=== PATIENT | female | born 1955 | race Two or more races ===

== ENCOUNTER 2016-08-10 09:13 | Emergency (ER) | payer OTHER ==
[2016-08-10 09:21] VITALS: RESP 16
--- NOTE | 2016-08-10 09:24 | EDPHY ---
H & P Stated Complaint: Left sided rib pain from fall yesterday. Time Seen by Provider: 08/10/16 09:23 - Personal History Current Tetanus/Diphtheria Vaccine: Unsure Current Tetanus Diphtheria and Acellular Pertussis (TDAP): Unsure - Medical/Surgical History Other PMH: Denies - Social History Smoking Status: Never smoked Constitutional: Initial Vital Signs Temperature (C) 36.4 C 08/10/16 09:18 Heart Rate 68 08/10/16 09:18 Respiratory Rate 16 08/10/16 09:18 Blood Pressure 137/69 H 08/10/16 09:18 O2 Sat (%) 97 08/10/16 09:18 O2 Delivery Mode Room Air Allergies/Adverse Reactions: ibuprofen Allergy (Verified 08/10/16 09:18) Home Medications: Medication Instructions Recorded oxyCODONE IR [Oxycodone Ir (*)] 5 - 10 mg PO Q6 PRN #20 tab 08/10/16 Medical Decision Making - Diagnostics Imaging Results: Imaging Impressions Chest CT 08/10/16 09:40 Impression: Single lateral left ninth rib fracture. Otherwise negative. Results called to Dr. Valles at 10:48 AM. Final results are concordant with the initial interpretation. General information for patients regarding this examination can be found at [email or web address]. If you have questions or comments about this report, please contact me at [phone] (hospital) or [phone] (cell). Imaging: Discussed imaging studies w/ call center assistant Radiologist, I viewed and interpreted images myself ED Course/Re-evaluation: CHIEF COMPLAINT: Rib pain HISTORY OF PRESENT ILLNESS: The patient is a Kinyarwanda-speaking 60 y/o female, with a history of diabetes, arriving with her family members complaining of left lateral rib pain secondary to a fall yesterday. She says she was cleaning a bathroom at work when she slipped and fell onto the edge of the tub striking the left side of her chest. She did not lose consciousness and denies other injuries. She has associated difficulty breathing due to pain. No midline neck or back pain, weakness, paresthesias, vomiting. She denies other medical history. Her son at bedside translated for us. REVIEW OF SYSTEMS: A 10 point review of systems was performed and is negative with the exception of the elements mentioned in the history of present illness. PHYSICAL EXAM: HR, BP, O2 Sat, RR. Temp noted General Appearance: Alert, well hydrated, appropriate, uncomfortable and non- toxic appearing. Head: Atraumatic without scalp tenderness or obvious injury Eyes: Pupils equal, round, reactive to light and accommodation, EOMI, no trauma , no injection. Nose: Atraumatic, no rhinorrhea, clear. Throat: Mucus membranes moist. Neck: Supple, nontender, no lymphadenopathy. Respiratory: No retractions, no distress, no wheezes, and no accessory muscle use. Lungs are clear to auscultation bilaterally. Cardiovascular: Regular rate and rhythm, no murmurs, rubs, or gallops. Good capillary refill all extremities. Gastrointestinal: Abdomen is soft, nontender, non-distended, no masses, no rebound, no guarding, no peritoneal signs. Musculoskeletal: Normal active ROM of all extremities, atraumatic. Left rib tenderness underneath left breast. Neurological: Alert, appropriate, and interactive. Nonfocal neuro exam. Skin: No rashes, good turgor, no nodules on palpation. Past medical history: Diabetes Past surgical history: Denies Family history: Noncontributory Social history: Kinyarwanda-speaking. Family at bedside. Employed. DIAGNOSTICS/PROCEDURES/CRITICAL CARE TIME: CT Chest: Left lateral 9th rib fracture DIFFERENTIAL DIAGNOSIS: The differential diagnosis for the patient's trauma included but was not limited to intracranial injury, long bone and pelvic bone fractures, spinal injury, intra-abdominal injury, and intra-thoracic injury. MEDICAL DECISION MAKING: This is a 60 y/o female with a history of diabetes presenting with lateral left rib tenderness secondary to a fall yesterday. No other trauma or tenderness noted on exam. Flank, spine, and abdomen are nontender. Plan for ISTAT and chest CT to rule out fracture and intra-thoracic injury. 1mg IV Dilaudid, 4mg IV Zofran, 1L IV NS administered for pain. CT is positive for rib fracture. I discussed findings with the patient. She will be discharged home with standard rib fracture instructions and referral to PCP for follow up as needed. - Data Points Laboratory Results: 08/10/16 09:44 POC Hgb 13.3 gm/dL gm/dL (12.6-16.3) POC Hct 39 % % (38-47) POC Sodium 144 mEq/L mEq/L (134-144) POC Potassium 4.2 mEq/L mEq/L (3.3-5.0) POC Chloride 107 mEq/L mEq/L (97-110) POC BUN 12 mg/dL mg/dL (7-23) POC Creatinine 0.7 mg/dL mg/dL (0.6-1.0) POC Glucose 118 mg/dL H mg/dL (70-100) Medications Given: Discontinued Medications Hydromorphone HCl (Dilaudid) 1 mg IVP EDNOW ONE Stop: 08/10/16 09:40 Last Admin: 08/10/16 10:02 Dose: 1 mg Ondansetron HCl (Zofran) 4 mg IVP EDNOW ONE Stop: 08/10/16 09:40 Last Admin: 08/10/16 10:02 Dose: 4 mg Point of Care Test Results: 08/10/16 09:44 POC Sodium 144 POC Potassium 4.2 POC Chloride 107 POC BUN 12 POC Creatinine 0.7 POC Glucose 118 H Departure - Departure Disposition: Home, Routine, Self-Care Clinical Impression: Left rib fracture Qualifiers: Encounter type: initial encounter Rib fracture type: single rib Fracture type: closed Qualified Code(s): S22.32XA - Fracture of one rib, left side, initial encounter for closed fracture Condition: Good Instructions: Rib Fracture (ED), How to Use an Incentive Spirometer (ED) Additional Instructions: 1. Take OxyIR as prescribed when needed for pain. Apply ice to sore areas. 2. Use incentive spirometer as directed. 3. Follow up with your primary care provider for unimproved symptoms over the next 2 weeks. Rib fractures take several weeks to heal. 4. Return to the ED for any worsening of condition. Referrals: [facility],. [Clinic] - As per Instructions Prescriptions: oxyCODONE IR [Oxycodone Ir (*)] 5 - 10 mg PO Q6 PRN #20 tab PRN Reason: Pain, Severe Report Scribed for: Buddy Valles Report Scribed by: Amanda Lopez Date of Report: 08/10/16 Time of Report: 09:43
[2016-08-10] MEDS ORDERED: HYDROmorphONE/DILAUDID 1 MG/ML SYR IVP ONE (09:39)
[2016-08-10] MEDS ORDERED: ONDANSETRON 4 MG/2 ML VIAL IVP ONE (09:39)
[2016-08-10] MEDS ORDERED: IOPAMIDOL (ISOVUE-300) 100 ML BTL ONE (10:02)
[2016-08-10 11:09] VITALS: BP 121/73; PULSE 74; TEMP 98.1; O2SAT 94
== END 2016-08-10 11:30 | disposition home or self-care (01) ==
DX: S22.32XA Fracture of one rib, left side, initial encounter for closed fracture (principal); E11.9 Type 2 diabetes mellitus without complications; W01.198A Fall on same level from slipping, tripping and stumbling with subsequent striking against other object, initial encounter; Y92.002 Bathroom of unspecified non-institutional (private) residence as the place of occurrence of the external cause; Y99.0 Civilian activity done for income or pay; Y93.89 Activity, other specified
CPT/HCPCS: 82947-QW; 96374; J1170; J2405; Q9967

== ENCOUNTER 2017-05-31 19:33 | Emergency (ER) | payer OTHER ==
[2017-05-31] MEDS ORDERED: HYDROmorphONE/DILAUDID 2 MG/ML INJ IVP ONE (20:21)
[2017-05-31] MEDS ORDERED: NS 1,000 ML IV ONE (20:21)
[2017-05-31] MEDS ORDERED: ONDANSETRON 4 MG/2 ML VIAL IVP ONE ×2 (20:21→21:54)
--- NOTE | 2017-05-31 20:26 | EDPHY ---
H & P Time Seen by Provider: 05/31/17 20:00 HPI/ROS: HPI Abdominal pain. 66-year-old female by private vehicle with family. This patient complains of abdominal pain which she describes as lower, sharp and cramping mostly on the left side with radiation to the left back but some as well on the right side. She states that it developed at about 10:00 p.m.. She has had this pain to a lesser degree intermittently in the past but it has gone away on its own. She denies any prior abdominal surgical history. Her last meal was lunch earlier today. This was about 2:00 p.m.. No diarrhea. No bloody or melenic stool. Last bowel movement was yesterday. This was described as normal. She has had some mild nausea but no vomiting. She denies any upper abdominal tenderness on palpation. ROS: Constitutional: No fever, no chills. No weakness. Eyes: No discharge. No changes in vision. ENT: No sore throat. No nasal congestion or rhinorrhea. Respiratory: No cough. No shortness of breath. Cardiac: No chest pain, no palpitations. Gastrointestinal: As above, no vomiting, no diarrhea. Genitourinary: No hematuria. No dysuria or increased frequency with urination. Musculoskeletal: No back pain. No neck pain. No myalgias or arthralgias. Skin: No rashes. Neurological: No headache. No focal weakness or altered sensation. Past medical history: Type 2 diabetes. Primary care is through [facility]. Dr. Gamal Snyder. Social history: Nonsmoker. Here with her family. Physical Exam: General Appearance: Alert, moderately obese, no distress but she looks uncomfortable. This patient is responding to questions appropriately and in full sentences. This patient appears well-hydrated and well-nourished. Eyes: Pupils equal and round no pallor or injection. No lid edema, erythema or injection. Respiratory: There are no retractions, lungs are clear to auscultation with good air movement bilaterally. Cardiovascular: Regular rate and rhythm. No murmur. Gastrointestinal: Abdomen is soft with vague and moderate tenderness on palpation of the left lower quadrant, no masses, bowel sounds normal. No focal tenderness at McBurney's point. No Jovel sign. Neurological: Motor sensory function is grossly intact. Cranial nerves are normal. Gait is normal. Skin: Warm and dry, no rashes. Musculoskeletal: Neck is supple and nontender. No midline thoracic, lumbar, sacral tenderness on palpation. No CVA tenderness on palpation. Extremities are symmetrical. All joints range without pain or impingement. Psychiatric: No agitation. No depression. Database: EKG: Imaging: CT abdomen and pelvis with IV contrast: No evidence of kidney stone. Some right-sided constipation. Normal appendix. Fatty liver. No diverticulosis or diverticulitis. Otherwise normal study. Results were discussed with staff radiologist Dr. Ronaldo Smith. Procedures: Emergency department course: IV was placed. She was placed on a monitor. Vital signs reviewed. She is moderately hypertensive. Vital signs otherwise normal. She was started on IV normal saline with 500 cc to 1 L to be given over the next hour. She will be given 0.25 mg of IV hydromorphone initially for pain. This will be repeated as needed. She will be given 4 mg of IV Zofran for some mild nausea. She consents to CT imaging to evaluate for possible diverticulitis. 10:10 p.m., patient re-evaluated. Results of emergency department workup discussed with the patient and family through a fitness plan coordinator. Repeat abdominal exam she is soft, nontender nondistended. She will be given magnesium citrate to treat constipation. She will go home with this. She feels comfortable going home and I feel she is safe for discharge. Follow-up and return to emergency department precautions were discussed with her. All of her questions were answered. She was discharged in good condition with family. All interviews performed with [facility] employed fitness plan coordinator. Differential Diagnosis: The differential diagnosis on this patient includes but is not limited to diverticulitis, urinary tract infection, ureterolithiasis. Appendicitis, cholecystitis, volvulus unlikely. This represents a partial list of diagnoses considered. These considerations are based on history, physical exam, past history, reassessment and diagnostic testing. Smoking Status: Never smoked Constitutional: Initial Vital Signs Temperature (C) 36.5 C 05/31/17 19:37 Heart Rate 65 05/31/17 19:37 Respiratory Rate 20 05/31/17 19:37 Blood Pressure 153/68 H 05/31/17 19:37 O2 Sat (%) 96 05/31/17 19:37 O2 Delivery Mode Room Air Allergies/Adverse Reactions: No Known Allergies Allergy (Unverified 05/31/17 19:37) Home Medications: Medication Instructions Recorded Diabetes Medicine 05/31/17 Medical Decision Making - Diagnostics Imaging Results: Imaging Impressions Abdomen CT 05/31/17 20:22 Impression: 1. Mild hepatomegaly with diffuse hepatic steatosis. 2. Normal CT appearance of the appendix. 3. Small central sliding hiatal hernia. 4. Moderate right-sided constipation. Findings were discussed with Johnathon Jiang MD at 22:01, on 05/31/2017. - Data Points Laboratory Results: Laboratory Results 05/31/17 20:20 05/31/17 20:20 05/31/17 05/31/17 05/31/17 20:20 20:20 20:15 WBC 6.57 10^3/uL 10^3/uL (3.80-9.50) RBC 4.24 10^6/uL 10^6/uL (4.18-5.33) Hgb 12.8 g/dL g/dL (12.6-16.3) Hct 37.2 % L % (38.0-47.0) MCV 87.7 fL fL (81.5-99.8) MCH 30.2 pg pg (27.9-34.1) MCHC 34.4 g/dL g/dL (32.4-36.7) RDW 12.6 % % (11.5-15.2) Plt Count 227 10^3/uL 10^3/uL (150-400) MPV 12.3 fL H fL (8.7-11.7) Neut % (Auto) 53.6 % % (39.3-74.2) Lymph % (Auto) 35.3 % % (15.0-45.0) Cochran % (Auto) 7.5 % % (4.5-13.0) Eos % (Auto) 2.9 % % (0.6-7.6) Baso % (Auto) 0.5 % % (0.3-1.7) Nucleat RBC Rel Count 0.0 % % (0.0-0.2) Absolute Neuts (auto) 3.53 10^3/uL 10^3/uL (1.70-6.50) Absolute Lymphs (auto) 2.32 10^3/uL 10^3/uL (1.00-3.00) Absolute Monos (auto) 0.49 10^3/uL 10^3/uL (0.30-0.80) Absolute Eos (auto) 0.19 10^3/uL 10^3/uL (0.03-0.40) Absolute Basos (auto) 0.03 10^3/uL 10^3/uL (0.02-0.10) Absolute Nucleated RBC 0.00 10^3/uL 10^3/uL (0-0.01) Immature Gran % 0.2 % % (0.0-1.1) Immature Gran # 0.01 10^3/uL 10^3/uL (0.00-0.10) Sodium 142 mEq/L mEq/L (135-145) Potassium 4.5 mEq/L mEq/L (3.5-5.2) Chloride 109 mEq/L mEq/L (97-110) Carbon Dioxide 21 mEq/l L mEq/l (22-31) Anion Gap 12 mEq/L mEq/L (8-16) BUN 19 mg/dL mg/dL (7-23) Creatinine 0.7 mg/dL mg/dL (0.6-1.0) Estimated GFR > 60 Glucose 92 mg/dL mg/dL (70-100) Calcium 11.5 mg/dL H mg/dL (8.5-10.4) Phosphorus 3.1 mg/dL mg/dL (2.5-4.5) Urine Color PALE YELLOW Urine Appearance CLEAR Urine pH 5.0 (5.0-7.5) Ur Specific Adams 1.005 (1.002-1.030) Urine Protein NEGATIVE (NEGATIVE) Urine Ketones NEGATIVE (NEGATIVE) Urine Blood 1+ H (NEGATIVE) Urine Nitrate NEGATIVE (NEGATIVE) Urine Bilirubin NEGATIVE (NEGATIVE) Urine Urobilinogen NEGATIVE EU EU (0.2-1.0) Ur Leukocyte Esterase NEGATIVE (NEGATIVE) Urine RBC 1-3 /hpf /hpf (0-3) Urine WBC 1-3 /hpf /hpf (0-3) Ur Epithelial Cells TRACE /lpf /lpf (NONE-1+) Urine Bacteria TRACE /hpf H /hpf (NONE SEEN) Urine Glucose NEGATIVE (NEGATIVE) Medications Given: Discontinued Medications Hydromorphone HCl (Dilaudid) 0.25 mg IVP EDNOW ONE Stop: 05/31/17 20:22 Last Admin: 05/31/17 20:31 Dose: 0.25 mg Sodium Chloride (Ns) 1,000 mls @ 0 mls/hr IV EDNOW ONE; Wide Open PRN Reason: Protocol Stop: 05/31/17 20:22 Last Admin: 05/31/17 20:32 Dose: 1,000 mls Magnesium Citrate (Magnesium Citrate) 300 ml PO ONCE ONE Stop: 05/31/17 22:22 Last Admin: 05/31/17 22:22 Dose: 300 ml Ondansetron HCl (Zofran) 4 mg IVP EDNOW ONE Stop: 05/31/17 20:22 Last Admin: 05/31/17 20:32 Dose: 4 mg Ondansetron HCl (Zofran) 4 mg IVP EDNOW ONE Stop: 05/31/17 21:55 Last Admin: 05/31/17 21:55 Dose: 4 mg Departure - Departure Disposition: Home, Routine, Self-Care Clinical Impression: Lower abdominal pain, Constipation Condition: Good Instructions: Constipation (ED), Acute Abdominal Pain (ED) Additional Instructions: Read and follow provided instructions. Follow-up with your primary care physician, Dr. Gamal Snyder, at [facility] early this week on Friday or Friday for re-evaluation. Take medication as prescribed. Magnesium citrate, drink contents of bottle. Be near bathroom. This medicine is to treat constipation. Ibuprofen dosin mg every 6 hours with meals for the next 3 days only. Take only as needed for pain. Return to the emergency department for worsening symptoms, worsening abdominal pain, vomiting and inability to keep fluids down, fever, bloody stool or other serious concerns. Referrals: Gamal Synder MD [Primary Care Provider] - As per Instructions Print Language: Scottish
[2017-05-31 20:56] LABS: PLATELET COUNT 227 10^3/uL (150-400)
[2017-05-31] MEDS ORDERED: IOPAMIDOL (ISOVUE-300) 100 ML BTL ONE (20:58)
[2017-05-31] MEDS ORDERED: ONDANSETRON 4 MG/2 ML VIAL ONE (21:53)
[2017-05-31 21:56] VITALS: BP 131/72
[2017-05-31] MEDS ORDERED: MAGNESIUM CITRATE 300 ML BOTTLE ONE (22:19)
[2017-05-31] MEDS ORDERED: MAGNESIUM CITRATE 300 ML BOTTLE PO ONE (22:21)
== END 2017-05-31 22:25 | disposition home or self-care (01) ==
DX: K59.00 Constipation, unspecified (principal); E11.9 Type 2 diabetes mellitus without complications; E86.9 Volume depletion, unspecified
CPT/HCPCS: 96374; J1170; J2405; Q9967